=== PATIENT | male | born 1970 | race Caucasian/White ===

== ENCOUNTER 2017-09-26 09:28 | Day surgery (SDC) | payer BC ==
[~2017-09-26] VITALS: Ht 177.8 cm; Wt 99.9 kg
[2017-09-26 10:28] VITALS: BP 132/59
[2017-09-26 14:10] VITALS: BP 127/80
== END 2017-09-26 14:45 | disposition home or self-care (01) ==
LOC: SDC 09:28
PROC: 0SBD4ZZ Excision of Left Knee Joint, Percutaneous Endoscopic Approach (ICD-10-PCS; principal; 2017-09-26)
DX: S83.242A Other tear of medial meniscus, current injury, left knee, initial encounter (principal); X58.XXXA Exposure to other specified factors, initial encounter
CPT/HCPCS: J1100; J1885; J2250; J2405; J2795; J3010